=== PATIENT | female | born 1960 | race Caucasian/White ===

== ENCOUNTER 2017-06-07 19:16 | Emergency (ER) | payer MEDICAID ==
[2017-06-07 19:16] VITALS: BMI 24.7
[2017-06-07] MEDS ORDERED: Albuterol-Ipratrop 3 mg / 0.5 (3 ml) UD INH STA (20:31)
[2017-06-07] MEDS ORDERED: Albuterol-Ipratrop 3 mg / 0.5 (3 ml) UD ONE (21:18)
[2017-06-07 21:40] LABS: BASO # 0.1 K/uL (0.0-0.2); BASO % 0.9 % (0.0-2.0); EOS # 0.5 K/uL (0.0-0.7); EOS % 8.8 % (0.0-4.0); HEMOGLOBIN 13.7 g/dL (12.0-16.0); LYMPH # 2.5 K/uL (1.0-4.3); LYMPH % 43.1 % (20.0-40.0); MEAN CELL VOLUME 101.7 fl (81.0-99.0); MEAN CORPUSCULAR HGB CONC 33.5 g/dL (33.0-37.0); MEAN PLATELET VOLUME 8.2 fl (7.2-11.7); MONO # 0.4 K/uL (0.0-0.8); MONO % 6.9 % (0.0-10.0); NEUT # 2.4 K/uL (1.8-7.0); NEUT % 40.3 % (50.0-75.0); RBC 4.03 Mil/uL (3.80-5.20); RED CELL DISTRIBUTION WIDTH 14.3 % (11.5-14.5); WHITE BLOOD COUNT 5.9 K/uL (4.8-10.8)
[2017-06-07 22:10] LABS: ALB/GLOB RATIO 1.4 (1.0-2.1); ALBUMIN 4.1 g/dL (3.5-5.0); ALT/SGPT 31 U/L (9-52); AST/SGOT 25 U/L (14-36); BLOOD UREA NITROGEN 15 mg/dl (7-17); CALCIUM 9.2 mg/dL (8.4-10.2); GFR AFRICAN-AMERICAN > 60; GFR NON-AFRICAN AMERICAN > 60
--- NOTE | 2017-06-07 22:13 | ED PDOC ---
HPI: CCC, URI, Sore Throat Time Seen by Provider: 06/07/17 19:42 Chief Complaint (Nursing): Flu-like Symptoms Chief Complaint (Provider): Cough, fever History Per: Patient History/Exam Limitations: no limitations Have you had recent travel within the past 21 days to any of the following countries: [place], [place], [place] or [place]?: No Onset/Duration Of Symptoms: Days (2) Current Symptoms Are (Timing): Still Present Location Of Pain: None Additional Complaint(s): Pt reports temp 102 at home last night. PT states she was due for labs to get her WBC checked (Hx of HIV). Pt states she has been wheezing at night. Past Medical History Reviewed: Historical Data, Nursing Documentation, Vital Signs Vital Signs: Last Vital Signs Temp 98.1 F 06/07/17 23:17 Pulse 60 06/07/17 23:17 Resp 16 06/07/17 23:17 BP 120/61 06/07/17 23:17 Pulse Ox 100 06/07/17 23:17 - Medical History PMH: HIV Denies: Chronic Kidney Disease - Surgical History Surgical History: No Surg Hx - Family History Family History: States: No Known Family Hx - Living Arrangements Living Arrangements: With Family - Social History Current smoker - smoking cessation education provided: No Alcohol: None Drugs: Denies - Home Medications Home Medications: Ambulatory Orders Medication Instructions Recorded Elviteg/Lindsay/Emtric/Tenofo Dis 1 tab PO DAILY 03/27/15 [Stribild] Albuterol HFA [Ventolin HFA 90 1 puff IH BID PRN #1 unit 06/07/17 mcg/actuation (8 g)] Azithromycin 250 mg PO DAILY #6 tab 06/07/17 Promethazine HCl/Codeine 10 ml PO Q8H PRN #150 ml 06/07/17 [Prometh-Codein 6.25-10 mg/5 ml] - Allergies Allergies/Adverse Reactions: Allergies Allergy/AdvReac Type Severity Reaction Status Date / Time Penicillins Allergy RASH Verified 06/07/17 19:28 Review of Systems ROS Statement: Except As Marked, All Systems Reviewed And Found Negative Constitutional: Positive for: Fever (Last night ) Respiratory: Positive for: Cough, Shortness of Breath Physical Exam - Reviewed Nursing Documentation Reviewed: Yes Vital Signs Reviewed: Yes - Physical Exam Appears: Positive for: Well, Non-toxic, No Acute Distress Head Exam: Positive for: ATRAUMATIC, NORMAL INSPECTION, NORMOCEPHALIC Skin: Positive for: Normal Color, Warm, DRY Eye Exam: Positive for: Normal appearance ENT: Positive for: Normal ENT Inspection Neck: Positive for: Normal, Painless ROM Cardiovascular/Chest: Positive for: Regular Rate, Rhythm Respiratory: Positive for: Wheezing. Negative for: Normal Breath Sounds, Accessory Muscle Use Gastrointestinal/Abdominal: Positive for: Normal Exam, Bowel Sounds, Soft Back: Positive for: Normal Inspection Extremity: Positive for: Normal ROM Neurologic/Psych: Positive for: Alert, Oriented - Laboratory Results Result Diagrams: 06/07/17 21:34 06/07/17 21:34 - ECG O2 Sat by Pulse Oximetry: 99 Medical Decision Making Medical Decision Making: No wheezing on re-evaluation. Disposition - Clinical Impression Clinical Impression: Cough - Patient ED Disposition Is Patient to be Admitted: No Counseled Patient/Family Regarding: Diagnosis, Need For Followup - Disposition Referrals: Tiago Hoover MD [Staff Provider] - Disposition: Routine/Home Disposition Time: 23:27 Condition: GOOD Prescriptions: Albuterol HFA [Ventolin HFA 90 mcg/actuation (8 g)] 1 puff IH BID PRN #1 unit PRN Reason: Wheezing Azithromycin 250 mg PO DAILY #6 tab Promethazine HCl/Codeine [Prometh-Codein 6.25-10 mg/5 ml] 10 ml PO Q8H PRN #150 ml PRN Reason: Cough Instructions: Acute Cough (ED)
[2017-06-07] MEDS ORDERED: Promethazine/Cod 6.25mg-10mg/5ml Syr UD PO STA (23:15)
[2017-06-07 23:18] VITALS: BP 120/61; PULSE 60; RESP 16; TEMP 98.1
[2017-06-07 23:28] VITALS: O2SAT 99
[2017-06-07] MEDS ORDERED: Promethazine/Cod 6.25mg-10mg/5ml Syr UD ONE (23:28)
--- NOTE | 2017-06-08 11:03 | RAD ---
HISTORY: cough COMPARISON: Prior two-view chest radiograph 03/19/2015. TECHNIQUE: Chest PA and lateral FINDINGS: LUNGS: No active pulmonary disease. PLEURA: No significant pleural effusion identified. No pneumothorax apparent. CARDIOVASCULAR: Normal. OSSEOUS STRUCTURES: No significant abnormalities. VISUALIZED UPPER ABDOMEN: Normal. OTHER FINDINGS: None. IMPRESSION: Normal chest radiographs. No significant interval change compared to chest radiographs 03/19/2015.
== END 2017-06-07 23:42 | disposition home or self-care (01) ==
LOC: H.ER 19:16
DX: R05 Cough (principal); R50.9 Fever, unspecified; Z88.0 Allergy status to penicillin